=== PATIENT | female | born 1985 | race Caucasian/White ===

== ENCOUNTER 2021-06-20 12:00 | Emergency (ER) | payer BC, OTHER ==
[~2021-06-20] VITALS: Ht 172.7 cm; Wt 91.5 kg
[2021-06-20] MEDS ORDERED: ACET-897 PO (12:13)
[2021-06-20] MEDS ORDERED: PREN1CHW6 PO (12:13)
[2021-06-20] MEDS ORDERED: CLIN150C15 PO (12:13)
[2021-06-20] MEDS ORDERED: CLINDAMYCIN 900 MG in IV 1 EA IV ONE (12:45)
[2021-06-20 13:10] LABS: BASO % 0.3 % (0.0-1.0); EOS % 0.4 % (0.0-3.0); HEMATOCRIT 35.4 % (36.0-47.0); HEMOGLOBIN 11.6 g/dl (12.0-15.5); LYMPH # 0.9 10^3/uL (1.5-5.0); MEAN CORPUSCULAR HGB CONC 32.8 g/dl (32.0-36.5); MEAN CORPUSCULAR VOLUME 85.5 fl (80.0-96.0); MONO # 1.2 10^3/uL (0.0-0.8); MONO % 15.1 % (2.0-8.0); NEUTROPHILS # 5.5 10^3/uL (1.5-8.5); PLATELET COUNT, AUTOMATED 158 10^3/uL (150-450); RED BLOOD COUNT 4.14 10^6/uL (4.00-5.40); WHITE BLOOD COUNT 7.7 10^3/uL (4.0-10.0)
[2021-06-20 13:36] LABS: ERYTHROCYTE SEDIMENTATION RATE 60 mm/hr (0-20)
[2021-06-20 13:57] VITALS: BP 120/72
== END 2021-06-20 14:20 | disposition home or self-care (01) ==
LOC: M ED 12:00
DX: O26.893 Other specified pregnancy related conditions, third trimester (principal); R22.0 Localized swelling, mass and lump, head; R50.9 Fever, unspecified; O99.613 Diseases of the digestive system complicating pregnancy, third trimester; K08.89 Other specified disorders of teeth and supporting structures; Z3A.35 35 weeks gestation of pregnancy